=== PATIENT | female | born 1930 | race Caucasian/White ===

== ENCOUNTER 2019-08-15 21:32 | Observation (INO) | payer MEDICARE, MEDICAID ==
[~2019-08-15] VITALS: Ht 172.7 cm; Wt 80.7 kg
[2019-08-15 21:32] VITALS: BP 162/60
--- NOTE | 2019-08-15 21:40 | NUR ---
89 YEAR OLD FEMALE BIBA FROM [facility], PER EMS PATIENT WAS CONFUSED FOR THE PAST 12 HOURS AND STARTED ACTING MORE AGGRESSIVE TO HER NEIGHBOR RESIDENT. PATIENT GCS 14 (E4,V4,M6), AOX1. BREATHING EVEN AND UNLABORED, SKIN WARM AND DRY. BED IN LOWEST POSITION, LOCKED, BED RAIL UPX1. PATIENT PLACED ON MONTIOR, ERMD AWARE OF STATUS PMH - DM2 ALLERGIES - NKA
--- NOTE | 2019-08-15 22:00 | NUR ---
PT BEULAH BLS. TAKEN TO BED 2
--- NOTE | 2019-08-15 22:01 | NUR ---
PT TAKEN TO CT
--- NOTE | 2019-08-15 22:19 | NUR ---
PT RETURN FROM CT
[2019-08-15 23:30] LABS: BASOPHILS % (AUTO) 0.5 % (0.0-2.0); EOSINOPHILS # (AUTO) 0.5 K/uL (0-0.4); EOSINOPHILS % (AUTO) 6.8 % (0.0-4.0); HEMATOCRIT 37.9 % (36-48); HEMOGLOBIN 12.6 g/dL (12.0-16.0); LYMPHOCYTES # (AUTO) 2.2 K/uL (2.5-16.5); LYMPHOCYTES % (AUTO) 30.3 % (20.5-51.1); MEAN CORPUSCULAR HEMOGLOBIN 33 pg (27-31); MEAN CORPUSCULAR HGB CONC 33 g/dL (33-37); MEAN CORPUSCULAR VOLUME 99.3 fL (80-94); MONOCYTES # (AUTO) 0.5 K/uL (0.8-1.0); MONOCYTES % (AUTO) 6.9 % (1.7-9.3); NEUTROPHILS % (AUTO) 55.5 % (42.2-75.2); PLATELET COUNT (AUTO) 241 K/uL (140-450); RED BLOOD CELL COUNT(AUTO) 3.81 MIL/uL (4.20-5.40); WHITE BLOOD COUNT (AUTO) 7.2 K/uL (4.8-10.8)
--- NOTE | 2019-08-15 23:30 | NUR ---
PATIENT ALERT AND AWAKE, BREATHING EVEN AND UNLABORED
[2019-08-15 23:46] LABS: ALBUMIN 4.1 g/dL (3.4-5.0); ANION GAP 13.3 (8-16); ASPARTATE AMINOTRANSFERASE 17 U/L (15-37); CARBON DIOXIDE 28.3 mmol/L (21-32); CHLORIDE 104 mmol/L (98-107); CREATININE 1.7 mg/dL (0.6-1.3); GLUCOSE 108 mg/dL (74-106); POTASSIUM 3.6 mmol/L (3.5-5.1); SODIUM SERUM 142 mmol/L (136-145); TOTAL BILIRUBIN 0.3 mg/dL (0.0-1.0); UREA NITROGEN, BLOOD 21 mg/dL (7-18)
[2019-08-15 23:49] LABS: APPEARANCE,URINE CLEAR (CLEAR); BILIRUBIN,URINE NEGATIVE (NEGATIVE); BLOOD, URINE TRACE-I (NEGATIVE); COLOR,URINE YELLOW (YELLOW); LEUKOCYTE ESTERASE ,URINE TRACE (NEGATIVE); NITRITE, URINE NEGATIVE (NEGATIVE); PH,URINE 6.5 (5.0-9.0); UGLUCOSE TRACE (NEGATIVE)
[2019-08-15 23:51] LABS: ACETAMINOPHEN < 0.5 ug/ml (10-30); SALICYLATE < 2.8 mg/dL (2.8-20.0)
--- NOTE | 2019-08-16 00:20 | NUR ---
PATIENT ALERT AND AWAKE, BREATHING EVEN AND UNLABORED. PATIENT ATTEMPTED TO WALK TO BATHROOM AGAIN ON OWN, PT GIVEN CALL LIGHT AND TOLD TO USE IF NEEDED TO GET UP. STORAGE BATTERY CHARGER ASSISTED TO BATHROOM
[2019-08-16 00:47] LABS: RBC,URINE 0-5 /HPF (0-5); WBC,URINE 0-5 /HPF (0-5)
[2019-08-16] MEDS ORDERED: cefTRIAXone 1,000 MG VIAL ONE (00:59)
--- NOTE | 2019-08-16 01:00 | NUR ---
PATIENT ALERT AND AWAKE, BREATHING EVEN AND UNLABORED. PATIENT ATTEMPTED TO WALK TO BATHROOM AGAIN ON OWN. FRUIT COORDINATOR ASSISTED TO BATHROOM. TOOL CHECKER NOTIFIED TO MOVE CLOSER TO NURSING STATION
--- NOTE | 2019-08-16 01:11 | NUR ---
PT MOVED TO BED 4
--- NOTE | 2019-08-16 01:28 | NUR ---
PATIENT ALERT AND AWAKE, BREATHING EVEN AND UNLABORED.
--- NOTE | 2019-08-16 02:50 | NUR ---
PATIENT RESTING WITH EYES CLOSED, BREATHING EVEN AND UNLABORED.
[2019-08-16] MEDS ORDERED: NACL 0.9% 1,000 ML IV SCH (02:54)
[2019-08-16] MEDS ORDERED: MORPHINE SULFATE 2 MG/ML SYR IVP PRN (02:55)
[2019-08-16] MEDS ORDERED: DOCUSATE SODIUM 100 MG GELCAP PO PRN (02:55)
[2019-08-16] MEDS ORDERED: ONDANSETRON 4 MG/2 ML VIAL IM/IVP PRN (02:55)
[2019-08-16] MEDS ORDERED: HYDROcodone/APAP 5/325 MG 1 TAB TAB PO PRN (02:55)
[2019-08-16] MEDS ORDERED: ACETAMINOPHEN 325 MG TAB PO PRN (02:55)
[2019-08-16] MEDS ORDERED: LORazepam 2 MG/ML VIAL IM/IVP PRN (02:55)
[2019-08-16 03:27] LABS: PROTHROMBIN TIME 10.1 secs (10.8-13.4)
[2019-08-16 03:52] LABS: BARBITURATE, URINE NEG. ng/ml (NEG <=200); BENZODIAZEPINE, URINE NEG. ng/mL (NEG <=200); CANNABINOID, URINE NEG. ng/mL (NEG <=50); COCAINE, URINE NEG. ng/mL (NEG <=300); OPIATE, URINE NEG. ng/mL (NEG <=2000); PHENCYCLIDINE SCREEN,URINE NEG. ng/mL (NEG <=25)
--- NOTE | 2019-08-16 04:00 | NUR ---
Patient will be admitted to care of DR GARZA. Admited to TELE. Will go to room 110A. Belongings list completed. Report to CORTES TYLER.
[2019-08-16 04:05] LABS: CHOL/HDL RATIO 2.3 (1-4.5); FREE T4 (FREE THYROXINE) 1.13 ng/dL (0.76-1.46); MAGNESIUM 2.1 mg/dL (1.8-2.4); THYROID STIMULATING HORMONE 0.16 uIU/mL (0.34-3.74)
[2019-08-16 04:10] VITALS: BP 133/70
--- NOTE | 2019-08-16 04:10 | NUR ---
RECIEVED PT AA0X1 , NID , IV SITE INTACT AND PATENT , FROM ER / [facility]SE[facility] , SKIN INTACT . PT. CONFUSE BUT CAN FOLLOW SIMPLE COMMAND . AMBULATORY W / ASSIST - CONTINENT - SHE USES THE WORD PEE PEE WHEN SHE WANTS TO GO TO BATHROOM . NPO EXCEPT MEDS , SKIN INTACT . ADMISSION ASSESSMENT DONE - MRSA SPECIMEN SENT TO LAB. FALL RISK - PUT ON SAFETY / FALL PRECAUTION PROTOCOL - BED ALARM ON . PLOC DISCUSSES BUT POOR UNDERSTANDING DUE TO MENTAL STATUS . WILL CONT. TO MONITOR.
[2019-08-16] MEDS ORDERED: DEXTROSE 50% 50 ML SYR IVP PRN (04:15)
[2019-08-16] MEDS ORDERED: HYDR100T79 PO (04:25)
[2019-08-16] MEDS ORDERED: ASPI-1822 PO (04:25)
[2019-08-16] MEDS ORDERED: LOSA100T1 PO (04:25)
[2019-08-16] MEDS ORDERED: FERR325E14 PO (04:25)
[2019-08-16] MEDS ORDERED: ROSU5TAB PO (04:25)
[2019-08-16] MEDS ORDERED: DIT5 PO (04:25)
[2019-08-16] MEDS ORDERED: AMLO10TA PO (04:25)
[2019-08-16] MEDS ORDERED: SENN-73 PO (04:25)
--- NOTE | 2019-08-16 06:00 | NUR ---
TRYING TO REMOVE THE EQUIPMENT - REFER TO KATY FOR POSSIBLE RESTRAINT ORDER.
[2019-08-16] MEDS: BLOOD GLUCOSE MONITORING 1 DEV DEV FS SCH ×4 (06:42→21:29)
--- NOTE | 2019-08-16 07:00 | NUR ---
PUR ON RESTRAINT ORDERED - ENDORSE TO AM SHIFT THE RESTRAINST INTERVENTION.
--- NOTE | 2019-08-16 07:15 | NUR ---
RECEIVED BEDSIDE REPORT FROM NIGHTSHIFT NURSE. PT RESTING IN BED UPON ARRIVAL. ABLE TO MAKE NEEDS KNOWN. RESPIRATIONS EVEN AND UNLABORED WITH NO SOB OR RESPIRATORY DISTRESS. SKIN WARM AND DRY TO TOUCH. IV SITE IN LAC 20G IS CLEAN, DRY, AND INTACT. SAFETY MEASURES IN PLACE. WILL CONTINUE TO MONITOR.
[2019-08-16 08:00] VITALS: BP 155/56
--- NOTE | 2019-08-16 08:18 | NUR ---
PATIENT HAS BEEN SCREENED AND CATEGORIZED MODERATE NUTRITION RISK. PATIENT WILL BE SEEN WITHIN 3-5 DAYS OF ADMISSION. 08/18/19 08/20/[address]
[2019-08-16] MEDS: ASPIRIN 81 MG TAB.CHEW PO SCH (08:33)
[2019-08-16] MEDS: ATORVASTATIN 20 MG TAB PO SCH (08:34)
[2019-08-16] MEDS: amLODIPine 5 MG TAB PO SCH (08:35)
[2019-08-16] MEDS: SENNA 8.6 MG TAB PO SCH ×3 (08:35→22:48)
[2019-08-16] MEDS: LOSARTAN 50 MG TAB PO SCH (08:36)
[2019-08-16] MEDS: OXYBUTYNIN 5 MG TAB PO SCH ×3 (08:36→22:47)
[2019-08-16] MEDS: hydrALAZINE 25 MG TAB PO SCH ×3 (08:36→22:51)
--- NOTE | 2019-08-16 08:39 | NUR ---
ADMINISTERED SCHED MED PRESCRIBED PER MD ORDER. PT TOLERATED WELL. MEDICATION EDUCATION PERFORMED. PT SPEAKS WELSH SO PT WAS UNABLE TO VERBALIZE UNDERSTANDING. SAFETY MEASURES IN PLACE. WILL CONTINUE TO MONITOR.
[2019-08-16] MEDS ORDERED: NON-FORMULARY ITEM (Hydralazine HCl (Hydralazine Hydrochloride) 25 MG) PO SCH (09:00)
--- NOTE | 2019-08-16 10:14 | NUR ---
HOURLY ROUNDING. PT RESTING IN BED UPON ARRIVAL. ABLE TO MAKE SOME NEEDS KNOWN. RESPIRATIONS EVEN AND UNLABORED WITH NO SOB OR RESPIRATORY DISTRESS. SKIN WARM AND DRY TO TOUCH. SAFETY MEASURES IN PLACE. SITTER AT DOORWAY. WILL CONTINUE TO MONITOR.
--- NOTE | 2019-08-16 10:25 | NUR ---
ADMINISTERED SCHED IVF PRESCRIBED PER MD ORDER. PT TOLERATED WELL. MEDICATION EDUCATION PERFORMED. PT SPEAKS HUNGARIAN SO PT WAS UNABLE TO VERBALIZE UNDERSTANDING. SAFETY MEASURES IN PLACE. WILL CONTINUE TO MONITOR.
[2019-08-16] MEDS: DEXT 5% / NACL 0.45% 1,000 ML IV SCH ×2 (10:29→20:03)
--- NOTE | 2019-08-16 11:16 | NUR ---
PT NEEDS CONSENT FOR EGD. TRIED CALLING SON TWICE AT [phone] AND LEFT A VOICEMAIL. CALLED NATALIYA JAZMYN AT [phone]. THE NUMBER SAYS THAT IT IS NOT AVAILABLE. CALLED CLARK PATRICK AT [phone] AND HE SAID THAT HIS MALAYSIAN IS NOT GOOD ENOUGH TO TALK TO ME NOR IS THERE ANYONE HOME TO HELP HIM UNDERSTAND. CALLED VINCE AT [phone] FOR ANY OTHER NUMBERS AND THAT WERE ALL THE NUMBERS THEY HAD. SAFETY MEASURES IN PLACE. WILL CONTINUE TO MONITOR.
--- NOTE | 2019-08-16 11:30 | NUR ---
PT BLOOD SUGAR WAS 135. NO INSULIN COVERAGE NEEDED AT THIS TIME. SAFETY MEASURES IN PLACE. WILL CONTINUE TO MONITOR.
[2019-08-16 12:00] VITALS: BP 137/48
--- NOTE | 2019-08-16 12:57 | NUR ---
HOURLY ROUNDING. PT RESTING IN BED UPON ARRIVAL. ABLE TO MAKE SOME NEEDS KNOWN. RESPIRATIONS EVEN AND UNLABORED WITH NO SOB OR RESPIRATORY DISTRESS. SKIN WARM AND DRY TO TOUCH. 1:1 SITTER [address] DOORWAY. SAFETY MEASURES IN PLACE. WILL CONTINUE TO MONITOR.
--- NOTE | 2019-08-16 14:00 | NUR ---
GOT A HOLD OF NATALIYA ELDRIDGE AND OBTAINED CONSENT. VERIFIED WITH TWO WITNESSES. SAFETY MEASURES IN PLACE. WILL CONTINUE TO MONITOR.
--- NOTE | 2019-08-16 15:38 | NUR ---
PT RESTING IN BED WITH FAMILY AT BEDSIDE. ABLE TO MAKE SOME NEEDS KNOWN. RESPIRATIONS EVEN AND UNLABORED WITH NO SOB OR RESPIRATORY DISTRESS. SKIN WARM AND DRY TO TOUCH. 1:1 SITTER AT DOORWAY. SAFETY MEASURES IN PLACE. WILL CONTINUE TO MONITOR.
--- NOTE | 2019-08-16 15:45 | NUR ---
PT LEFT FOR EGD PROCEDURE. SAFETY MEASURES IN PLACE.
--- NOTE | 2019-08-16 15:52 | NUR ---
CALLED [facility] TO SEE IF PT HAD RECEIVED FLU AND OR PNA VACCINE. PER [facility], PT RECEIVED PNA VACCINE IN 2019 AND FLU VACCINE IN 03/18/2019
[2019-08-16 16:00] VITALS: BP 138/52
[2019-08-16] MEDS ORDERED: fentaNYL 0.05 MG/ML VIAL ONE (17:26)
[2019-08-16] MEDS ORDERED: MIDAZOLAM 2 MG/2 ML VIAL ONE ×2 (17:27)
[2019-08-16] MEDS: MIDAZOLAM 2 MG/2 ML VIAL IVP ONE ×2 (17:43→18:49)
[2019-08-16] MEDS: fentaNYL 0.05 MG/ML VIAL IVP ONE ×2 (17:44→18:49)
[2019-08-16] MEDS ORDERED: MAGNESIUM CITRATE 300 ML BTL PO SCH (17:50)
--- NOTE | 2019-08-16 18:30 | NUR ---
PT CAME BACK FROM THE OR. REPORT GIVEN FROM OR NURSE. PT RESTING IN BED UPON ARRIVAL. ABLE TO MAKE SOME NEEDS KNOWN. RESPIRATIONS EVEN AND UNLABORED WITH NO SOB OR RESPIRATORY DISTRESS. SKIN WARM AND DRY TO TOUCH. VITAL SIGNS: 145/56 BP, TEMP 97.7, 18 RR, 97% SPO2 ON RA. 1:1 SITTER AT DOORWAY. SAFETY MEASURES IN PLACE. WILL CONTINUE TO MONITOR.
[2019-08-16] MEDS ORDERED: GLUCAGON 1 MG VIAL IVP SCH (18:35)
--- NOTE | 2019-08-16 19:20 | NUR ---
ENDORSED TO NIGHTSHIFT NURSE. PT RESTING IN BED UPON ARRIVAL. ABLE TO MAKE SOME NEEDS KNOWN. RESPIRATIONS EVEN AND UNLABORED WITH NO SOB OR RESPIRATORY DISTRESS. SKIN WARM AND DRY TO TOUCH. 1:1 SITTER AT DOORWAY. SAFETY MEASURES IN PLACE. PT IS STABLE
--- NOTE | 2019-08-16 19:21 | NUR ---
RECD. RESTING COMFORTABLY SLEEPING IN BED, EASILY AROUSABLE WHEN AWAKEN BUT STILL DROWSY. S/P EGD. RESPIRATION EVEN AND UNLABORED. IV OF D51/2 NS AT 60 ML/HR INFUSING, RIGHT AC G20. SAFETY MEASURES ENFORCED. BED IN THE LOWEST POSITION, BED ALARM ON. NO APPEARANCE OF PAIN NOTED - FLACC -0. VS STABLE.
[2019-08-16 20:00] VITALS: BP 124/47
--- NOTE | 2019-08-16 20:00 | NUR ---
Patient's Plan of Care was discussed and reviewed with OCCUPATIONAL MEDICINE OFFICER: MIRI, WILL CONTINUE WITH CURRENT POC.
--- NOTE | 2019-08-16 20:45 | NUR ---
REPOSITIONED IN BED, MADE COMFORTABLE WITH PILLOWS. HARDLY WAKE UP, STILL DROWSY.
[2019-08-16] MEDS: LACTULOSE 20 GM/30 ML UDC PO SCH ×2 (21:00→22:46)
[2019-08-16] MEDS ORDERED: ROSUVASTATIN CALCIUM 5 MG PO SCH (21:00)
--- NOTE | 2019-08-16 21:29 | NUR ---
PATIENT STILL VERY DROWSY, SNORING. MOVES AND SLIGHTLY OPENS EYES WHEN AWAKEN BUT GOES BACK TO SLEEP AGAIN. DUE PO MEDICATIONS NOT GIVEN. INFORMED DR. CRUZ. WILL GIVE MEDS WHEN PATIENT IS FULLY AWAKE, VS TAKEN - T -98.2, RR -16, BP - 133/66, HR - 56, 02 SAT - 97% ON ROOM AIR.
[2019-08-16] MEDS: INSULIN LISPRO SLIDING SCALE 100 UNITS/ML VIAL SUBQ PRN (21:30)
--- NOTE | 2019-08-16 22:35 | NUR ---
WOKE UP AND REQUESTED TO GO TO THE BR, ASSISTED TO VOID. BACK TO BED AFTER VOIDING. SAFETY MAINTAINED.
--- NOTE | 2019-08-16 22:47 | NUR ---
DUE PO MEDICATIONS FOR THE NIGHT GIVEN WITH APPLE SAUCE. WENT BACK TO SLEEP AFTER TAKING MEDS.
[2019-08-17] VITALS: BP 112/46
--- NOTE | 2019-08-17 00:30 | NUR ---
STILL SLEEPING COMFORTABLY IN BED.
--- NOTE | 2019-08-17 01:50 | NUR ---
TAKEN TO RADIOLOGY VIA W/C FOR CT SCAN OF ABDOMEN/PELVIS. Addendum: 08/17/19 at 0256 by Neida Morgan LVN CORRECTION: THIS CHARTING DOES NOT BELONG TO THIS PATIENT.
--- NOTE | 2019-08-17 02:05 | NUR ---
STILL SLEEPING COMFORTABLY IN BED.
--- NOTE | 2019-08-17 02:05 | NUR ---
BACK FROM RADIOLOGY. GOES BACK TO SLEEP. Addendum: 08/17/19 at 0257 by Neida Morgan LVN CORRECTION: THIS CHARTING DOES NOT BELONG TO THIS PATIENT.
[2019-08-17] MEDS: DEXT 5% / NACL 0.45% 1,000 ML IV SCH (02:55)
[2019-08-17 04:00] VITALS: BP 128/60
--- NOTE | 2019-08-17 05:30 | NUR ---
WOKE UP, ASSISTED TO BR TO VOID. BACK TO BED AFTER VOIDING. GOES BACK TO SLEEP.
--- NOTE | 2019-08-17 06:20 | NUR ---
ASSISTED OUT OF BED TO GO TO BR AND VOID. BACK TO BED AFTER VOIDING. SLEEP AGAIN.
--- NOTE | 2019-08-17 06:52 | NUR ---
STILL SLEEPING COMFORTABLY IN BED. SAFETY MAINTAINED DURING SHIFT. CONDITION REMAIN STABLE.
[2019-08-17 07:13] LABS: BASOPHILS % (AUTO) 0.5 % (0.0-2.0); EOSINOPHILS # (AUTO) 0.2 K/uL (0-0.4); HEMATOCRIT 35.7 % (36-48); LYMPHOCYTES # (AUTO) 1.3 K/uL (2.5-16.5); LYMPHOCYTES % (AUTO) 21.6 % (20.5-51.1); MEAN CORPUSCULAR HEMOGLOBIN 33 pg (27-31); MEAN CORPUSCULAR HGB CONC 34 g/dL (33-37); MEAN CORPUSCULAR VOLUME 99.5 fL (80-94); MONOCYTES # (AUTO) 0.4 K/uL (0.8-1.0); MONOCYTES % (AUTO) 5.7 % (1.7-9.3); NEUTROPHILS # (AUTO) 4.2 K/uL (1.8-7.7); NEUTROPHILS % (AUTO) 68.2 % (42.2-75.2); PLATELET COUNT (AUTO) 224 K/uL (140-450); RED BLOOD CELL COUNT(AUTO) 3.59 MIL/uL (4.20-5.40); RED CELL DISTRIBUTION WIDTH 13.7 % (11.6-13.7); WHITE BLOOD COUNT (AUTO) 6.2 K/uL (4.8-10.8)
--- NOTE | 2019-08-17 07:20 | NUR ---
REPORT RECEIVED FROM NURSE PEREZ, PT AWAKE, A/OX2, ABLE TO COMMUNICATE NEEDS. PT DENIES PAIN OR DISCOMFORT, NO S/S OF ACUTE DISTRESS NOTED AT THIS TIME, ASSISTED OOB TO BATHROOM AND BACK TO BED, CALL LIGHT AND PERSONAL ITEMS PLACED WITHIN EASY REACH, SAFETY PRECAUTIONS IN PLACE, WILL CONTINUE TO MONITOR.
[2019-08-17 07:24] LABS: CARBON DIOXIDE 27.5 mmol/L (21-32); CHLORIDE 106 mmol/L (98-107); GLUCOSE 95 mg/dL (74-106); POTASSIUM 3.5 mmol/L (3.5-5.1); SODIUM SERUM 143 mmol/L (136-145); UREA NITROGEN, BLOOD 18 mg/dL (7-18)
[2019-08-17] MEDS: BLOOD GLUCOSE MONITORING 1 DEV DEV FS SCH ×3 (07:30→16:49)
[2019-08-17 07:58] LABS: CREATININE 1.5 mg/dL (0.6-1.3)
[2019-08-17 08:45] VITALS: BP 137/59
[2019-08-17] MEDS ORDERED: LACT10SO1 PO (08:58)
[2019-08-17] MEDS: ASPIRIN 81 MG TAB.CHEW PO SCH (09:04)
[2019-08-17] MEDS: LOSARTAN 50 MG TAB PO SCH (09:04)
[2019-08-17] MEDS: SENNA 8.6 MG TAB PO SCH ×4 (09:04→16:54)
[2019-08-17] MEDS: hydrALAZINE 25 MG TAB PO SCH (09:04)
[2019-08-17 09:05] LABS: MAGNESIUM 2.5 mg/dL (1.8-2.4); PHOSPHORUS 3.8 mg/dL (2.5-4.9)
[2019-08-17] MEDS: OXYBUTYNIN 5 MG TAB PO SCH (09:05)
[2019-08-17] MEDS: ATORVASTATIN 20 MG TAB PO SCH (09:05)
[2019-08-17] MEDS: amLODIPine 5 MG TAB PO SCH (09:06)
[2019-08-17] MEDS: LACTULOSE 20 GM/30 ML UDC PO SCH ×3 (09:14→16:54)
--- NOTE | 2019-08-17 09:16 | NUR ---
DISCHARGE PLANNING: THIS IS AN 89 Y/O FEMALE PATIENT FROM [facility], WHO CAME IN DUE TO CONFUSION X 1 DAY. PAST MEDICAL HISTORY INCLUDE DM, HTN, OVERACTIVE BLADDER AND CONSTIPATION. INITIAL DIAGNOSIS OF INGESTED FOREIGN BODY. CURRENT LABS INCLUDE WBC 6.2, H/H 12.0/35.7, NA/K 143/3.5, BUN/CREA 18/1.5 AND MAG 2.5. MRSA NARES PENDING. GI CONSULT IN PLACE. DC PLAN BACK TO [facility] ONCE STABLE. Addendum: 08/17/19 at 0950 by Carmela Harrington CM RECEIVED AN ORDER TO DC BACK TO [facility] TODAY. CLINICALS SENT TO [facility]. CONTACTED RICARDO BRIZUELA AT [phone] REGARDING DC PLAN. SHE STATED SHE WILL CALL ME BACK FOR THE AUTH. RICARDO WILL FOLLOW UP. Addendum: 08/17/19 at 1140 by Carmela Harrington CM PER ELBERT, PATIENT WILL GO TO ROOM 35A UNDER DR. CAREY. CONTACTED RICARDO BRIZUELA REGARDING TRANSPORTATION, SHE STATED SHE WILL CALL ME BACK FOR THE AUTH. Addendum: 08/17/19 at 1200 by Carmela Harrington CM CONTACTED PATIENT'S SON NATALIYA ELDRIDGE AT [phone] REGARDING DC PLAN AND IS IN AGREEMENT. I ALSO INFORMED HIM OF THE IM AND CHOICE OF VENDOR LETTER. HE STATED HE WILL BE IN THE HOSPITAL IN 30 MINS AND WILL HAVE THE NURSE CALL ME ONCE HE IS HERE. Addendum: 08/17/19 at 1504 by Carmela Harrington CM RECEIVED A CALL FROM RICARDO BRIZUELA REGARDING TRANSPORTATION. SHE STATED TO CONTACT [facility] AT [phone] OPT 4 AND AUTH IS [id number]. CONTACTED [facility], ABLE TO SPEAK TO ZAC HE STATED HE WILL CALL ME BACK FOR ETA. Addendum: 08/17/19 at 1506 by Carmela Harrington LATE ENTRY FOR 1310: RECEIVED A CALL FROM PRIMARY RN THAT PATIENT'S SON IS HER TO SIGN IM AND CHOICE OF VENDOR LETTER. SIGNED FORMS PLACED IN THE CHART.
--- NOTE | 2019-08-17 10:15 | NUR ---
PT ASLEEP APPEARS COMFORTABLE, NO S/S OF ACUTE DISTRESS NOTED AT THIS TIME, CALL LIGHT AND PERSONAL ITEMS REMAIN WITHIN EASY REACH, SAFETY PRECAUTIONS IN PLACE, WILL CONTINUE TO MONITOR.
[2019-08-17 12:00] VITALS: BP 119/48
[2019-08-17] MEDS: INSULIN LISPRO SLIDING SCALE 100 UNITS/ML VIAL SUBQ PRN (12:43)
[2019-08-17 13:02] VITALS: BP 119/48
--- NOTE | 2019-08-17 13:15 | NUR ---
PT REMAINS AWAKE, A/OX2, ABLE TO COMMUNICATE NEEDS. NO S/S OF ACUTE DISTRESS NOTED AT THIS TIME, CALL LIGHT AND PERSONAL ITEMS REMAIN WITHIN EASY REACH, SAFETY PRECAUTIONS IN PLACE, CON AT BEDSIDE, WILL CONTINUE TO MONITOR. PT SON NATALIYA AT BEDSIDE, NOTIFIED ADMITTING AND CASE MANAGEMENT FOR NECESSARY SIGNATURES. PT SON RECEIVED VERBAL DISCHARGE INSTRUCTIONS, VERBALIZED UNDERSTANDING, PT SON NATALIYA UNABLE TO REMAIN IN HOUSE FOR COMPLETION OF PAPER DOCUMENTS PENDING TRANSPORTATION VERIFICATION.
--- NOTE | 2019-08-17 13:30 | NUR ---
REPORT CALLED TO YOSSI AT [facility]
--- NOTE | 2019-08-17 15:30 | NUR ---
PT ASLEEP, APPEARS COMFORTABLE, CALL LIGHT AND PERSONAL ITEMS REMAIN WITHIN EASY REACH, SAFETY AND FALL PRECAUTIONS IN PLACE, WILL CONTINUE TO MONITOR.
[2019-08-17 16:00] VITALS: BP 136/55
--- NOTE | 2019-08-17 17:06 | NUR ---
PT REMAINS A/OX2 ABLE TO COMMUNICATE. NEEDS, SKIN INTACT. PT AWARE AND AGREEABLE TO TRANSFER TO [facility], UNABLE TO DEMONSTRATE UNDERSTADNIG OF DC INSTRUCTION. PERIPHERAL IV TO RUE REMOVED, CATH INTACT, TOLERATED REMOVAL WELL. PT DISCHARGED TO [facility] TRANSPORT WITH ALL PERSONAL BELONGINGS. NO S/SOF ACUTE DISTRESS NOTED.
== END 2019-08-17 17:02 ==
LOC: MED 21:32 → MTU 08-16 03:15 → INTOOBSV 08-17 06:36 → OBSVTOIN 08-17 06:36
PROVIDERS: ADMIT General Practice; ATTEND General Practice
DX: T18.9XXA Foreign body of alimentary tract, part unspecified, initial encounter (principal); G93.40 Encephalopathy, unspecified; E11.22 Type 2 diabetes mellitus with diabetic chronic kidney disease; I12.9 Hypertensive chronic kidney disease with stage 1 through stage 4 chronic kidney disease, or unspecified chronic kidney disease; N18.9 Chronic kidney disease, unspecified; N17.0 Acute kidney failure with tubular necrosis; R80.9 Proteinuria, unspecified; N32.81 Overactive bladder; E78.5 Hyperlipidemia, unspecified; K59.00 Constipation, unspecified; R41.82 Altered mental status, unspecified; K29.70 Gastritis, unspecified, without bleeding; X58.XXXA Exposure to other specified factors, initial encounter; Y92.89 Other specified places as the place of occurrence of the external cause
CPT/HCPCS: 36415; 43239; 70450; 71045; 74018; 74176; 80048; 80053; 80061; 80305; 81001; 81025; 82150; 82550; 82948; 83036; 83690; 83735; 83880; 84100; 84439; 84443; 84484; 85025; 85610; 85730; 86677; 87081; 93005; 93307; 93880; 96361; 96365; 96372; 97110; 97116; 97161; 97530; 99285; G0378; G0480; G0482; J0696; J1610; J1815; J2250; J3010; J7030; Q0092

== ENCOUNTER 2019-12-03 08:09 | Inpatient (IN) | payer OTHER, MEDICAID, SELFPAY ==
[~2019-12-03] VITALS: Ht 154.9 cm; Wt 61.7 kg
[~2019-12-03 08:09] MED LIST: AMLO10TA PO; ASPI-1822 PO; DIT5 PO; FERR325E14 PO; HYDR100T79 PO; LACT10SO1 PO; LOSA100T1 PO; ROSU5TAB PO; SENN-73 PO
--- NOTE | 2019-12-03 08:12 | NUR ---
biba bls coming from [facility] noted to have altered consciouness at 7am .aox2,GCS 14 , sce , cbs blf . pmhx dm , htn , ckd.
--- NOTE | 2019-12-03 08:14 | NUR ---
BIBA TAKEN TO BED 7
--- NOTE | 2019-12-03 08:15 | NUR ---
dr prescott at bedside evaluating pt.
[2019-12-03] MEDS ORDERED: NACL 0.9% 1,000 ML IV ONE (08:20)
[2019-12-03 08:41] VITALS: BP 166/66
[2019-12-03 08:50] LABS: BASOPHILS % (AUTO) 0.7 % (0.0-2.0); EOSINOPHILS # (AUTO) 0.5 K/uL (0-0.4); EOSINOPHILS % (AUTO) 9.4 % (0.0-4.0); HEMATOCRIT 37.1 % (36-48); HEMOGLOBIN 12.3 g/dL (12.0-16.0); LYMPHOCYTES # (AUTO) 1.7 K/uL (2.5-16.5); LYMPHOCYTES % (AUTO) 33.4 % (20.5-51.1); MEAN CORPUSCULAR HEMOGLOBIN 34 pg (27-31); MEAN CORPUSCULAR HGB CONC 33 g/dL (33-37); MEAN CORPUSCULAR VOLUME 101.9 fL (80-94); MONOCYTES # (AUTO) 0.4 K/uL (0.8-1.0); MONOCYTES % (AUTO) 7.1 % (1.7-9.3); NEUTROPHILS # (AUTO) 2.5 K/uL (1.8-7.7); NEUTROPHILS % (AUTO) 49.4 % (42.2-75.2); PLATELET COUNT (AUTO) 237 K/uL (140-450); RED BLOOD CELL COUNT(AUTO) 3.64 MIL/uL (4.20-5.40); RED CELL DISTRIBUTION WIDTH 13.8 % (11.6-13.7); WHITE BLOOD COUNT (AUTO) 5.2 K/uL (4.8-10.8)
[2019-12-03 09:00] LABS: ANION GAP 14.3 (8-16); CHLORIDE 108 mmol/L (98-107); CREATININE 1.8 mg/dL (0.6-1.3); GLUCOSE 109 mg/dL (74-106); POTASSIUM 4.3 mmol/L (3.5-5.1); SODIUM SERUM 146 mmol/L (136-145); UREA NITROGEN, BLOOD 30 mg/dL (7-18)
[2019-12-03 09:05] LABS: PROTHROMBIN TIME 9.7 secs (10.8-13.4)
[2019-12-03 09:06] LABS: ALBUMIN 3.7 g/dL (3.4-5.0); ASPARTATE AMINOTRANSFERASE 16 U/L (15-37); TOTAL BILIRUBIN 0.2 mg/dL (0.0-1.0)
[2019-12-03 09:57] LABS: APPEARANCE,URINE CLEAR (CLEAR); BILIRUBIN,URINE NEGATIVE (NEGATIVE); BLOOD, URINE NEGATIVE (NEGATIVE); COLOR,URINE YELLOW (YELLOW); LEUKOCYTE ESTERASE ,URINE NEGATIVE (NEGATIVE); NITRITE, URINE NEGATIVE (NEGATIVE); PH,URINE 6.5 (5.0-9.0); UGLUCOSE NEGATIVE (NEGATIVE)
[2019-12-03] MEDS ORDERED: cefTRIAXone 1,000 MG VIAL ONE (10:00)
[2019-12-03] MEDS ORDERED: AZITHROMYCIN 1,000 MG in DEXTROSE 5% 500 ML IV ONE (10:05)
[2019-12-03] MEDS ORDERED: DOCUSATE SODIUM 100 MG GELCAP PO PRN (10:05)
[2019-12-03] MEDS ORDERED: ACETAMINOPHEN 325 MG TAB PO PRN (10:05)
[2019-12-03] MEDS ORDERED: DEXTROSE 50% 50 ML SYR IVP PRN (10:05)
[2019-12-03] MEDS ORDERED: ONDANSETRON 4 MG/2 ML VIAL IM/IVP PRN (10:05)
--- NOTE | 2019-12-03 10:30 | NUR ---
AT BEDSIDE EVALUATING PT.
--- NOTE | 2019-12-03 10:50 | NUR ---
Patient will be admitted to care of DR HERNANDEZ. Admited to [facility]. Will go to room 117. Belongings list completed. Report to kolby pop.
--- NOTE | 2019-12-03 10:50 | NUR ---
RECEIVED REPORT FROM ER NURSE FIORELLA. PATIENT IN STABLE CONDITION, RESPIRATIONS EVEN AND UNLABORED. VITAL SIGNS WNL. NO SIGNS OF DISTRESS NOTED. PATIENT BELONGINGS ARE BEDSIDE. SAFETY MEASURES IN PLACE, BED IN LOWEST POSITION, CALL LIGHT WITHIN REACH. WILL CONTINUE TO MONITOR.
[2019-12-03 10:53] LABS: FREE T4 (FREE THYROXINE) 1.11 ng/dL (0.76-1.46); MAGNESIUM 2.2 mg/dL (1.8-2.4); PHOSPHORUS 4.4 mg/dL (2.5-4.9); THYROID STIMULATING HORMONE 0.68 uIU/mL (0.34-3.74)
[2019-12-03] MEDS ORDERED: RISP0.5T19 PO (10:54)
[2019-12-03 11:22] VITALS: BP 158/60
[2019-12-03] MEDS ORDERED: AZITHROMYCIN 500 MG in DEXTROSE 5% 250 ML IV SCH (11:30)
--- NOTE | 2019-12-03 12:00 | NUR ---
SCHEDULED MEDICATIONS ADMINISTERED. PT TOLERATED WELL. NO DISTRESS NOTED. WILL CONTINUE TO MONITOR.
[2019-12-03] MEDS: DEXT 5% / NACL 0.45% 1,000 ML IV SCH ×2 (12:22→23:02)
[2019-12-03] MEDS: BLOOD GLUCOSE MONITORING 1 DEV DEV FS SCH ×3 (12:24→20:52)
--- NOTE | 2019-12-03 14:10 | NUR ---
PATIENT HAD SWALLOW EVAL, THIN LIQUIDS AND PUREE DIET ONCE SHE IS NO LONGER NPO. SIGN POSTED. PT IS WAITING BEDSIDE TO DO PHYSICAL THERAPY EVAL AND GET PATIENT UP. WILL FOLLOW UP AND CONTINUE TO MONITOR.
[2019-12-03 16:00] VITALS: BP 167/77
--- NOTE | 2019-12-03 16:40 | NUR ---
PT IS RESTING IN BED QUIETLY WITH EYES CLOSED. EASILY AROUSED TO SOUND OF HER NAME. NOL SIGNS OF DISTRESS NOTED. SAFETY MEASURES IN PLACE, WILL CONTINUE TO MONITOR.
--- NOTE | 2019-12-03 17:11 | NUR ---
RECEIVED CALL FROM LAB, COVID TEST IS NEGATIVE. REPORTED. WILL CONTINUE TO MONITOR.
--- NOTE | 2019-12-03 17:16 | NUR ---
ST CLARIFICATION NOTE Pt WAS OVERALL COOPERATIVE, BUT AT TIMES WAS LABILE AND ANXIOUS. Pt HAS MINIMAL DENTITION PRESENT; POOR FOR MASTICATION. Pt WAS ABLE TO TOLERATE PUREE FOOD AND THIN LIQUIDS VIA STRAW W/O DIFFICULTY OR OVERT S/S OF ASPIRATION OR PENETRATION NOTED. AP TRANSFER AND SWALLOW RESPONSE WERE TIMELY WITH FULL LARYNGEAL ELEVATION AND EXCURSION. REC PUREE FOOD AND THIN LIQUIDS AT THIS TIME. COUNTER SALES REPRESENTATIVE AT SNF CAN REASSESS Pt'S ABILITY TO MASTICATE MS WHEN BACK AT SNF WITH DENTURES. ASPIRATION PRECAUTIONS, ORAL CARE, TRAY SET UP, AND INTERMITTENT SUPERVISION NEEDED. D/C SKILLED ST FOR SWALLOW. Pt HAS FUNCTIONAL SWALLOW FOR Pt AT THIS TIME.
--- NOTE | 2019-12-03 19:10 | NUR ---
REPORT GIVEN TO PRODUCE DEPARTMENT SUPERVISOR NURSE FOR CONTINUITY OF CARE. PT IN STABLE CONDITION.
[2019-12-03 20:00] VITALS: BP 150/58
--- NOTE | 2019-12-03 20:00 | NUR ---
RECEIVED PATIENT REPORT AT BEDSIDE. PT AWAKE AND ALERT BUT CONFUSED. PT ON ROOM AIR. NO SOB OR S/S OF DISTRESS NOTED. BED LOWERED WITH CALL LIGHT WITHIN REACH. WILL CONTINUE TO MONITOR
[2019-12-03] MEDS ORDERED: CRUSHER, PILL MC ONE (20:20)
[2019-12-03] MEDS: SIMVASTATIN 20 MG TAB PO SCH (20:26)
[2019-12-03] MEDS: risperiDONE 1 MG TAB PO SCH (20:27)
[2019-12-03] MEDS: hydrALAZINE 25 MG TAB PO SCH (20:27)
[2019-12-03] MEDS: SENNA 8.6 MG TAB PO SCH (20:27)
--- NOTE | 2019-12-03 20:27 | NUR ---
DUE MEDS CRUSHED AND ADMINISTERED WITH PUDDING. PT TOLERATED WELL
[2019-12-03] MEDS ORDERED: RISPERIDONE 0.5 MG PO SCH (21:00)
[2019-12-03] MEDS ORDERED: NON-FORMULARY ITEM (Hydralazine HCl (Hydralazine Hydrochloride) 25 MG) PO SCH (21:00)
[2019-12-03] MEDS ORDERED: ROSUVASTATIN CALCIUM 5 MG PO SCH (21:00)
[2019-12-04] VITALS: BP 127/46
--- NOTE | 2019-12-04 02:34 | NUR ---
PT ASLEEP IN BED. NO S/S OF DISTRESS NOTED
[2019-12-04 05:31] VITALS: BP 146/52
[2019-12-04] MEDS: BLOOD GLUCOSE MONITORING 1 DEV DEV FS SCH ×4 (06:25→20:53)
[2019-12-04 06:58] LABS: BASOPHILS % (AUTO) 0.3 % (0.0-2.0); EOSINOPHILS # (AUTO) 0.3 K/uL (0-0.4); EOSINOPHILS % (AUTO) 7.4 % (0.0-4.0); HEMATOCRIT 33.7 % (36-48); HEMOGLOBIN 11.4 g/dL (12.0-16.0); LYMPHOCYTES # (AUTO) 1.2 K/uL (2.5-16.5); LYMPHOCYTES % (AUTO) 26.6 % (20.5-51.1); MEAN CORPUSCULAR HEMOGLOBIN 34 pg (27-31); MEAN CORPUSCULAR HGB CONC 34 g/dL (33-37); MEAN CORPUSCULAR VOLUME 101.4 fL (80-94); MONOCYTES # (AUTO) 0.3 K/uL (0.8-1.0); MONOCYTES % (AUTO) 7.2 % (1.7-9.3); NEUTROPHILS # (AUTO) 2.7 K/uL (1.8-7.7); NEUTROPHILS % (AUTO) 58.5 % (42.2-75.2); PLATELET COUNT (AUTO) 207 K/uL (140-450); RED BLOOD CELL COUNT(AUTO) 3.33 MIL/uL (4.20-5.40); RED CELL DISTRIBUTION WIDTH 13.5 % (11.6-13.7); WHITE BLOOD COUNT (AUTO) 4.6 K/uL (4.8-10.8)
[2019-12-04 07:14] LABS: ANION GAP 10.2 (8-16); CARBON DIOXIDE 27.6 mmol/L (21-32); CHLORIDE 109 mmol/L (98-107); CREATININE 1.5 mg/dL (0.6-1.3); GLUCOSE 146 mg/dL (74-106); POTASSIUM 3.8 mmol/L (3.5-5.1); SODIUM SERUM 143 mmol/L (136-145); UREA NITROGEN, BLOOD 24 mg/dL (7-18)
[2019-12-04 07:19] LABS: PHOSPHORUS 3.4 mg/dL (2.5-4.9)
--- NOTE | 2019-12-04 07:28 | NUR ---
PT REPORT GIVEN AT BEDSIDE. PT ENDORSED IN STABLE CONDITION
--- NOTE | 2019-12-04 07:29 | NUR ---
RECEIVED REPORT FROM MANAGER ANALYSIS NURSE, FOR CONTINUITY OF CARE. PT IS AA&OX2. RESPIRATIONS ARE EVEN AND UNLABORED, BREATHING TO ROOM AIR. RFA 22G IV IS INTACT AND RUNNING PER ORDERS. REVIEWED POC WITH PT. TELE MONITOR ATTACHED. SAFETY PRECAUTIONS IN PLACE; BED ALARM ACTIVATED, BED IN LOW POSITION, CALL LIGHT WITHIN REACH. FELLER HAND IS AT BEDSIDE TAKING PT'S VITAL SIGNS. NO DISTRESS NOTED. WILL CONTINUE TO MONITOR.
[2019-12-04 08:00] VITALS: BP 160/74
[2019-12-04 08:07] LABS: FOLIC ACID 6.5 ng/mL (>3.0)
[2019-12-04 08:18] LABS: CHOL/HDL RATIO 3.6 (1-4.5)
[2019-12-04] MEDS ORDERED: AZITHROMYCIN 250 MG in DEXTROSE 5% 250 ML IV SCH (09:00)
--- NOTE | 2019-12-04 09:31 | NUR ---
PATIENT HAS BEEN SCREENED AND CATEGORIZED HIGH NUTRITION RISK. PATIENT WILL BE SEEN WITHIN 1-2 DAYS OF ADMISSION. 12/04/[address]
[2019-12-04] MEDS: amLODIPine 5 MG TAB PO SCH (09:42)
[2019-12-04] MEDS: SENNA 8.6 MG TAB PO SCH ×2 (09:43→20:51)
[2019-12-04] MEDS: hydrALAZINE 25 MG TAB PO SCH ×2 (09:43→20:50)
[2019-12-04] MEDS: risperiDONE 1 MG TAB PO SCH ×2 (09:43→20:50)
--- NOTE | 2019-12-04 09:43 | NUR ---
PT'S SCHEDULED MEDICATIONS GIVEN. PT TOLERATED PO MEDS WELL. PT REPEATEDLY TRYING TO GET OUT OF BED. BED ALARM ACTIVATED. SAFETY MEASURES IN PLACE; CALL LIGHT WITHIN REACH, BED IN LOW POSITION. TELE MONITOR ATTACHED. WILL CONTINUE TO MONITOR.
[2019-12-04] MEDS: LOSARTAN 50 MG TAB PO SCH (09:45)
[2019-12-04] MEDS: ASPIRIN 81 MG TAB.CHEW PO SCH (09:52)
--- NOTE | 2019-12-04 11:08 | NUR ---
FLORAL ARTIST NOTE: Basic Screen: Yes High Risk DC Screen Almedia: NATALIYA ELDRIDGE Home Relationship: SON Pre-Admission Living Arrangements: SNF Other: [facility] Prior ADL Total/Dependent Current Home Health Name/Tel: N/A Current DME/02 Name/Tel: WHEELCHAIR Current Hospice Name/Tel: N/A Current Dialysis Name/Tel: N/A Healthcare Decision Maker: Patient Advance Directive No Physician Orders for Life Sustaining Treatment Form No Patient/Family Have Educational Needs No Discipline: Case Mgt/Social Svcs Tentative Discharge Plan/Destination: SNF/ECF Other: [facility] Will require assistance post discharge: No Referred to Lower In Supervisor: No Tentative Discharge Plan Summary: PATIENT IS AN 89-YEAR-OLD FEMALE ADMITTED FOR ALOC AND PNA. PATIENT HAS TYPE II DIABETES, ESSENTIAL HYPERTENSION, AND DYSLIPEDEMIA. PATIENT WAS ADMITTED FROM [facility]. SW CONTACTED GÉNESIS FROM [facility] [phone]. PER GÉNESIS, PATIENT IS WHEELCHAIR BOUND AND REQUIRES TOTAL ASSISTANCE WITH ADLS. GÉNESIS STATED THAT PATIENT IS GROUP HOME AND IS CURRENTLY ON A BED HOLD. GÉNESIS REPORTED THAT PATIENT IS ALERT/ORIENTED AT BASELINE AND THAT PATIENT'S HEALTHCARE DECISION MAKER IS SON: NATALIYA ELDRIDGE [phone]. TENTATIVE DISCHARGE PLAN IS FOR PATIENT TO RETURN HOME. NO FURTHER NEEDS IDENTIFIED. Signature: TOY ORELLANA Date: Dec 04, 2019 Time: 11:06
[2019-12-04] MEDS: DEXT 5% / NACL 0.45% 1,000 ML IV SCH (11:32)
[2019-12-04 12:00] VITALS: BP 142/72
--- NOTE | 2019-12-04 12:30 | NUR ---
PT SWABBED FOR COVID; SPECIMEN SENT TO LAB.
--- NOTE | 2019-12-04 12:35 | NUR ---
PT'S BLOOD SUGAR CHECKED; BGL: 246. WILL PROVIDE COVERAGE.
--- NOTE | 2019-12-04 13:30 | NUR ---
PT CONTINUES TO ATTEMPT TO GET OUT OF BED. PT ACCIDENTALLY REMOVED IV CATHETER. PT TO BE MOVED TO A ROOM CLOSER TO THE NURSING STATION.
[2019-12-04] MEDS: INSULIN LISPRO SLIDING SCALE 100 UNITS/ML VIAL SUBQ PRN ×2 (13:33→21:05)
--- NOTE | 2019-12-04 14:10 | NUR ---
DC PLANN[age] YRS OLD FEMALE PATIENT WAS ADMITTED FROM [facility] WITH THE DX OF ALOC AND PNEUMONIA. PATIENT HAS A HX OF DEMENTIA WITH BEHAVIORAL ISSUES, DM, HTN AND OVERACTIVE BLADDER . CXR SHOWED MILD RIGHT MIDLUNG INFILTRATE. CT HEAD DEMONSTRATES NO BLEEDING URINE, BLOOD CULTURES AND COVID TEST PENDING. ADMINISTERED IVF, IV ABX WITH ROCEPHIN AND AZITHROMYCIN. CONSULTED WITH PULMONOLOGY. DC PLAN TO GO BACK TO [facility] WHEN STABLE CM TO FOLLOW. Addendum: 12/06/19 at 1038 by Heather Singh CM PATIENT WILL BE DISCHARGED TODAY BACK TO [facility], FAXED CLINICALS AND SPOKE WITH DEVENDRA. SHE PROVIDED ROOM NUMBER [id number] KAMINI CAREY. CALLED FAMILY MEMBER AND SPOKE WITH SON NATALIYA ELDRIDGE [phone] TO DISCUSS RIGHTS OF MEDICARE AND TO LET KNOW PATIENT WILL BE RETURNING TO [facility] TODAY. Addendum: 12/06/19 at 1041 by Heather Singh CM NOTIFIED NURSE MONTANO OF ROOM NUMBER FOR PATIENT AND ACCEPTING DOCTOR. WILL WORK ON TRANSPORTATION Addendum: 12/06/19 at 1135 by Heather Singh SPOKE TO PATIENTS SON TO ASK IF HE IS WILLING TO ACCEPT THE COST OF TRANSPORTATION, BUT HE DECLINED. [facility] TRANSPORTATION WILL BE HERE AT 2:00 PM TO QUALITY REVIEWER PATIENT. NOTIFIED NURSE MONTANO AND DEVENDRA AT [facility].
--- NOTE | 2019-12-04 15:42 | NUR ---
12/04/19 RD INITIAL ASSESSMENT COMPLETED PLEASE REFER TO NUTRITION ASSESSMENT UNDER CARE ACTIVITY FOR ESTIMATED NUTRITIONAL NEEDS. 1. RECOMMENDED CCHO 60GM AND NA2GM PUREE DIET TOLERATED 2. IF PO INTAKE <75% RECOMMEND GLUCERNA BID 3. RD TO FOLLOW-UP 2-3 DAYS, HIGH RISK OSBALDO JOHNSON RD
[2019-12-04 16:00] VITALS: BP 134/74
[2019-12-04] MEDS ORDERED: NACL 0.9% 1,000 ML IV SCH (16:45)
--- NOTE | 2019-12-04 17:59 | NUR ---
RISPERDAL ONCE, GIVEN. BLOOD SUGAR CHECKED, WILL PROVIDE COVERAGE. PT CONTINUES TO ATTEMPT TO GET OUT OF BED. BED ALARM ACTIVATED, SAFETY MEASURES IN PLACE.
[2019-12-04] MEDS ORDERED: risperiDONE 1 MG TAB PO SCH (18:39)
--- NOTE | 2019-12-04 19:25 | NUR ---
IV INSERTED ON LEFT WRIST, 22G. IV FLUIDS, NS, RUNNING PER ORDERS. AZITHROMYCIN PO CRUSHED AND ADMINISTERED IN APPLESAUCE. NO ACUTE DISTRESS NOTED. WILL CONTINUE TO MONITOR. Addendum: 12/04/19 at 2224 by Carla Lewis RN TIME CORRECTION *[id number]
--- NOTE | 2019-12-04 19:29 | NUR ---
ENDORSED TO EXPANSION ENVELOPE MAKER HAND NURSE FOR CONTINUITY OF CARE. PT IS INSTABLE CONDITION.
--- NOTE | 2019-12-04 19:30 | NUR ---
RECEIVED BEDSIDE REPORT FROM DAY RN. PT IS AAOX1 TURKISH SPEAKING ONLY. RESPIRATIONS ARE EQUAL AND UNLABORED ON ROOM AIR. LUNG SOUNDS CLEAR AND DIMINISHED AT BASE. SKIN IS INTACT. SKIN WARM AND DRY TO TOUCH. PT IS CONFUSED AND TRYING TO GET OUT OF BED. NO IV AT THIS TIME D/T PT PULLED IV OUT. PT ON PUREE DIET. FROM [facility] COVID NEG X1 SECOND PENDING. PT ON DROPLET PRECAUTIONS. POC DISCUSSED. SAFETY MEASURES ARE IN PLACE. WILL ATTEMPT START NEW IV. CALL LIGHT IS WITHIN REACH.
[2019-12-04 20:00] VITALS: BP 155/66
[2019-12-04] MEDS: AZITHROMYCIN 250 MG TAB PO SCH (20:09)
--- NOTE | 2019-12-04 20:15 | NUR ---
ENDORSED PT TO MITCHELL RN. PT IS IN STABLE CONDITION.
--- NOTE | 2019-12-04 20:16 | NUR ---
RECEIVED ENDORSEMENT FROM NAYELI TOBIN. PATIENT IS AWAKE. CZECH SPEAKING. NO SOB. NO PAIN NOTED. IV LINE AT LEFT WRIST 22G. INTACT AND PATENT. WITH IVF INFUSING. FALL RISK PROTOCOL IN PLACE. DROPLET ISOLATION PRECAUTION OBSERVED AT ALL TIMES. PLAN OF CARE WAS DISCUSSED. CALL LIGHT WITHIN REACH. WILL CONTINUE TO MONITOR.
[2019-12-04] MEDS: SIMVASTATIN 20 MG TAB PO SCH (20:50)
--- NOTE | 2019-12-04 20:51 | NUR ---
DUE MEDS GIVEN ORDERED. TOLERATED WELL. WILL CONTINUE TO MONITOR.
--- NOTE | 2019-12-04 23:00 | NUR ---
PATIENT IS ASLEEP. NO SOB. CALL LIGHT WITHIN REACH. WILL CONTINUE TO MONITOR.
[2019-12-05] VITALS: BP 95/47
--- NOTE | 2019-12-05 01:15 | NUR ---
REPOSITIONED PATIENT. KEPT COMFORTABLE. WILL CONTINUE TO MONITOR.
[2019-12-05 04:00] VITALS: BP 146/65
--- NOTE | 2019-12-05 04:00 | NUR ---
KEPT CLEAN AND DRY. NO SOB. CALL LIGHT WITHIN REACH. WILL CONTINUE TO MONITOR.
[2019-12-05] MEDS: BLOOD GLUCOSE MONITORING 1 DEV DEV FS SCH ×4 (06:09→21:04)
--- NOTE | 2019-12-05 06:11 | NUR ---
BLOOD SUGAR CHECKED 103. PATIENT IS ASLEEP. AROUSABLE TO VERBAL. NO SOB. NO PAIN NOTED. WILL CONTINUE TO MONITOR.
[2019-12-05 06:12] LABS: BASOPHILS % (AUTO) 0.5 % (0.0-2.0); EOSINOPHILS # (AUTO) 0.1 K/uL (0-0.4); EOSINOPHILS % (AUTO) 1.3 % (0.0-4.0); HEMATOCRIT 32.1 % (36-48); HEMOGLOBIN 10.8 g/dL (12.0-16.0); LYMPHOCYTES # (AUTO) 1.4 K/uL (2.5-16.5); LYMPHOCYTES % (AUTO) 22.7 % (20.5-51.1); MEAN CORPUSCULAR HEMOGLOBIN 34 pg (27-31); MEAN CORPUSCULAR HGB CONC 34 g/dL (33-37); MONOCYTES # (AUTO) 0.4 K/uL (0.8-1.0); NEUTROPHILS # (AUTO) 4.4 K/uL (1.8-7.7); NEUTROPHILS % (AUTO) 69.5 % (42.2-75.2); PLATELET COUNT (AUTO) 206 K/uL (140-450); RED BLOOD CELL COUNT(AUTO) 3.18 MIL/uL (4.20-5.40); RED CELL DISTRIBUTION WIDTH 13.5 % (11.6-13.7); WHITE BLOOD COUNT (AUTO) 6.3 K/uL (4.8-10.8)
[2019-12-05 06:41] LABS: ANION GAP 13.5 (8-16); CARBON DIOXIDE 27.5 mmol/L (21-32); CHLORIDE 108 mmol/L (98-107); CREATININE 1.5 mg/dL (0.6-1.3); GLUCOSE 105 mg/dL (74-106); SODIUM SERUM 145 mmol/L (136-145); UREA NITROGEN, BLOOD 26 mg/dL (7-18)
[2019-12-05 06:44] LABS: MAGNESIUM 2.2 mg/dL (1.8-2.4); PHOSPHORUS 4.4 mg/dL (2.5-4.9)
--- NOTE | 2019-12-05 07:29 | NUR ---
ENDORSED PATIENT TO AM SHIFT RN FOR CONTINUITY OF CARE.
--- NOTE | 2019-12-05 07:30 | NUR ---
RECEIVED BEDSIDE REPORT FROM NIGHTSHIFT NURSE. PT RESTING IN BED. FLACC 0. RESPONSIVE TO VERBAL AND TACTILE STIMULI. RESPIRATIONS EVEN AND UNLABORED WITH NO SOB OR RESPIRATORY DISTRESS. SKIN WARM AND DRY TO TOUCH. IV SITE IN L ARM 22G IS CLEAN, DRY, AND INTACT. SAFETY MEASURES IN PLACE. WILL CONTINUE TO MONITOR
[2019-12-05 08:00] VITALS: BP 140/72
--- NOTE | 2019-12-05 08:15 | NUR ---
PT TRIED TO GET OUT OF BED WITHOUT ASSISTANCE. BED ALARM WAS RINGING. ASSISTED PATIENT. EDUCATED PT ON USING CALL LIGHT. PT UNABLE TO VERBALIZE UNDERSTANDING. SAFETY MEASURES IN PLACE. WILL CONTINUE TO MONITOR
[2019-12-05] MEDS ORDERED: cefTRIAXone 1,000 MG in LIDOCAINE MPF 1% 2.1 ML IM SCH (09:00)
[2019-12-05] MEDS ORDERED: LIDOCAINE MPF 1% 0 ML ONE (09:33)
[2019-12-05] MEDS ORDERED: cefTRIAXone 1,000 MG VIAL ONE (09:33)
[2019-12-05] MEDS: SENNA 8.6 MG TAB PO SCH ×2 (10:36→20:34)
[2019-12-05] MEDS: AZITHROMYCIN 250 MG TAB PO SCH (10:36)
[2019-12-05] MEDS: LOSARTAN 50 MG TAB PO SCH (10:36)
[2019-12-05] MEDS: risperiDONE 1 MG TAB PO SCH ×2 (10:36→20:35)
[2019-12-05] MEDS: hydrALAZINE 25 MG TAB PO SCH ×2 (10:36→20:35)
--- NOTE | 2019-12-05 10:36 | NUR ---
ADMINISTERED SCHED MED PRESCRIBED PER MD ORDER. PT TOLERATED WELL. MEDICATION EDUCATION PERFORMED. PT VERBALIZED UNDERSTANDING. SAFETY MEASURES IN PLACE. WILL CONTINUE TO MONITOR
[2019-12-05] MEDS: ASPIRIN 81 MG TAB.CHEW PO SCH (10:37)
[2019-12-05] MEDS: amLODIPine 5 MG TAB PO SCH (10:37)
--- NOTE | 2019-12-05 11:30 | NUR ---
PT BLOOD SUGAR IS 105. NO INSULIN NEEDED AT THIS TIME. SAFETY MEASURES IN PLACE. WILL CONTINUE TO MONITOR
[2019-12-05 12:00] VITALS: BP 155/61
--- NOTE | 2019-12-05 12:15 | NUR ---
PT TOOK OFF GOWN, TELE MONITOR, AND ATTEMPTED TO PULL OUT IV. TRIED TO REORIENT PATIENT. PT UNABLE TO VERBALIZED UNDERSTANDING. RESIDENT DR. SCHNEIDER MADE AWARE. SAFETY MEASURES IN PLACE. WILL CONTINUE TO MONITOR
--- NOTE | 2019-12-05 14:15 | NUR ---
PT GOT OUT OF BED MULTIPLE TIMES. BED ALARM WAS WORKING PROPERLY. PT GETS OUT OF BED AND SAYS "PEE PEE." WHEN PATIENT SITS ON THE BEDSIDE COMMODE, SHE DOES NOT VOID. RESIDENT JESSICA MADE AWARE. WILL CONTINUE TO MONITOR
--- NOTE | 2019-12-05 14:45 | NUR ---
ADMINISTERED SCHED MED PRESCRIBED PER MD ORDER. PT TOLERATED WELL. MEDICATION EDUCATION PERFORMED. PT VERBALIZED UNDERSTANDING. SAFETY MEASURES IN PLACE. WILL CONTINUE TO MONITOR
[2019-12-05] MEDS ORDERED: OLANZapine 2.5 MG TAB PO SCH (15:00)
--- NOTE | 2019-12-05 15:44 | NUR ---
BED ALARM WENT OFF AGAIN. PT STILL TRYING TO GET OUT OF BED TO USE THE BEDSIDE COMMODE. TRIED TO REORIENT PATIENT. PT UNABLE TO VERBALIZE UNDERSTANDING. SAFETY MEASURES IN PLACE. WILL CONTINUE TO MONITOR
[2019-12-05 16:00] VITALS: BP 132/74
--- NOTE | 2019-12-05 16:30 | NUR ---
PT BLOOD SUGAR IS 169. PRN INSULIN WILL BE ADMINISTERED WITH NEXT MEAL. SAFETY MEASURES IN PLACE. WILL CONTINUE TO MONITOR
[2019-12-05] MEDS: INSULIN LISPRO SLIDING SCALE 100 UNITS/ML VIAL SUBQ PRN (17:16)
--- NOTE | 2019-12-05 17:45 | NUR ---
ADMINISTERED SCHED MED PRESCRIBED PER MD ORDER. PT TOLERATED WELL. MEDICATION EDUCATION PERFORMED. PT VERBALIZED UNDERSTANDING. SAFETY MEASURES IN PLACE. WILL CONTINUE TO MONITOR
--- NOTE | 2019-12-05 18:00 | NUR ---
RECEIVED CALL FROM CHEMISTRY AND PT SECOND COVID SWAB CAME OUT NEGATIVE. CHARGE NURSE AND RESIDENT DR. SCHNEIDER IS AWARE. SAFETY MEASURES IN PLACE. WILL CONTINUE TO MONITOR
--- NOTE | 2019-12-05 19:15 | NUR ---
ENDORSED TO NIGHTSHIFT NURSE FOR CONTINUITY OF CARE. PT IS STABLE
--- NOTE | 2019-12-05 19:16 | NUR ---
RECEIVED PATIENT IN STABLE CONDITION FROM AM SHIFT NURSE FOR CONTINUITY OF CARE. RESPIRATIONS EVEN, UNLABORED. SKIN WARM, DRY. IV SITE NOTED TO LEFT WRIST PATENT/INTACT. NO C/O PAIN. NO S/S ACUTE DISTRESS. SAFETY PRECAUTIONS IN PLACE. CALL LIGHT WITHIN REACH.
--- NOTE | 2019-12-05 19:45 | NUR ---
PATIENT ATTEMPTED TO USE THE COMMODE BUT HAD ALREADY URINATED IN BED. INCONTINENT CARE RENDERED BY STAFF. PATIENT ABLE TO TRANSFER TO BED AND COMMODE WITH ASSIST. PATIENT CURRENTLY CLEAN/DRY IN BED. CALL LIGHT WITHIN REACH. SAFETY PRECAUTIONS IN PLACE.
[2019-12-05] MEDS: SIMVASTATIN 20 MG TAB PO SCH (20:34)
--- NOTE | 2019-12-05 21:00 | NUR ---
PATIENT IS AWAKE AND RESTING COMFORTABLY IN BED. DUE MEDS GIVEN. BLOOD GLUCOSE 150 MG/DL. CALL LIGHT WITHIN REACH. SAFETY PRECAUTIONS IN PLACE.
--- NOTE | 2019-12-05 23:08 | NUR ---
CONTINUES IN STABLE CONDITION. PATIENT IS ASLEEP WITH NO S/S ACUTE DISTRESS. CALL LIGHT IN REACH. SAFETY PRECAUTIONS IN PLACE.
[2019-12-06] VITALS: BP 125/62
--- NOTE | 2019-12-06 01:09 | NUR ---
MADE ROUNDS. PATIENT IS ASLEEP. NO S/S ACUTE DISTRESS. CALL LIGHT WITHIN REACH. WILL CONTINUE TO MONITOR.
--- NOTE | 2019-12-06 03:39 | NUR ---
PATIENT CONTINUES IN STABLE CONDITION. ASLEEP. NO S/S ACUTE DISTRESS. CALL LIGHT WITHIN REACH.
--- NOTE | 2019-12-06 05:53 | NUR ---
INCONTINENT CARE RENDERED. PATIENT IS AWAKE. NO S/S ACUTE DISTRESS. NO C/O PAIN. CALL LIGHT WITHIN REACH. SAFETY PRECAUTIONS IN PLACE.
[2019-12-06 06:11] LABS: BASOPHILS % (AUTO) 0.2 % (0.0-2.0); EOSINOPHILS # (AUTO) 0.2 K/uL (0-0.4); EOSINOPHILS % (AUTO) 4.9 % (0.0-4.0); HEMATOCRIT 28.8 % (36-48); HEMOGLOBIN 9.7 g/dL (12.0-16.0); LYMPHOCYTES # (AUTO) 1.8 K/uL (2.5-16.5); LYMPHOCYTES % (AUTO) 36.7 % (20.5-51.1); MEAN CORPUSCULAR HEMOGLOBIN 34 pg (27-31); MEAN CORPUSCULAR HGB CONC 34 g/dL (33-37); MEAN CORPUSCULAR VOLUME 101.1 fL (80-94); MONOCYTES # (AUTO) 0.4 K/uL (0.8-1.0); MONOCYTES % (AUTO) 7.1 % (1.7-9.3); NEUTROPHILS # (AUTO) 2.6 K/uL (1.8-7.7); NEUTROPHILS % (AUTO) 51.1 % (42.2-75.2); PLATELET COUNT (AUTO) 190 K/uL (140-450); RED BLOOD CELL COUNT(AUTO) 2.85 MIL/uL (4.20-5.40); RED CELL DISTRIBUTION WIDTH 13.3 % (11.6-13.7)
[2019-12-06] MEDS: BLOOD GLUCOSE MONITORING 1 DEV DEV FS SCH ×2 (06:30→12:17)
--- NOTE | 2019-12-06 07:01 | NUR ---
WILL ENDORSE TO NEXT SHIFT FOR CONTINUITY OF CARE. PATIENT IS IN STABLE CONDITION.
[2019-12-06 07:11] LABS: ANION GAP 11.6 (8-16); CARBON DIOXIDE 27.1 mmol/L (21-32); CHLORIDE 111 mmol/L (98-107); CREATININE 1.6 mg/dL (0.6-1.3); GLUCOSE 108 mg/dL (74-106); POTASSIUM 3.7 mmol/L (3.5-5.1); SODIUM SERUM 146 mmol/L (136-145); UREA NITROGEN, BLOOD 27 mg/dL (7-18)
[2019-12-06 07:13] LABS: MAGNESIUM 2.2 mg/dL (1.8-2.4); PHOSPHORUS 3.5 mg/dL (2.5-4.9)
--- NOTE | 2019-12-06 07:35 | NUR ---
RECEIVED PATIENT FROM SILK CREPE MACHINE OPERATOR RN FOR CONTINUITY OF CARE. PT IS AAOX2-3. DIFFICULT TO ASSESS B/C PT IS [place] SPEAKING. RESPIRATIONS EVEN, UNLABORED. SKIN WARM AND DRY AND INTACT. IV SITE NOTED TO LEFT WRIST PATENT AND INTACT AND SL. NO C/O PAIN. NO S/S OF ACUTE DISTRESS. SAFETY PRECAUTIONS IN PLACE. CALL LIGHT WITHIN REACH. WILL ROUND FREQUENTLY THROUGHOUT THE SHIFT.
[2019-12-06 08:00] VITALS: BP 127/54
[2019-12-06] MEDS: amLODIPine 5 MG TAB PO SCH (09:00)
[2019-12-06] MEDS: LOSARTAN 50 MG TAB PO SCH (09:00)
--- NOTE | 2019-12-06 09:15 | NUR ---
ADMINISTERED MORNING MEDS TO PT. PT TOLERATED WELL. ALL NEEDS MET. WILL ROUND FREQUENTLY ON PT.
[2019-12-06] MEDS: hydrALAZINE 25 MG TAB PO SCH (09:21)
[2019-12-06] MEDS: risperiDONE 1 MG TAB PO SCH (09:21)
[2019-12-06] MEDS: SENNA 8.6 MG TAB PO SCH (09:21)
[2019-12-06] MEDS: ASPIRIN 81 MG TAB.CHEW PO SCH (09:21)
[2019-12-06] MEDS: AZITHROMYCIN 250 MG TAB PO SCH (09:21)
[2019-12-06] MEDS ORDERED: CRUSHER, PILL MC ONE (09:29)
[2019-12-06] MEDS ORDERED: HYDR-4420 PO (10:40)
[2019-12-06] MEDS ORDERED: RIS1 PO (10:40)
[2019-12-06] MEDS ORDERED: CEFT1PDS IJ (10:40)
[2019-12-06] MEDS ORDERED: AZIT250T11 PO (10:40)
--- NOTE | 2019-12-06 11:37 | NUR ---
PT RESTING IN BED. ALL NEEDS MET. WILL CONTINUE TO ROUND FREQUENTLY ON PT.
--- NOTE | 2019-12-06 13:50 | NUR ---
CALLED [facility] AND GAVE REPORT TO NAYELI PRUITT.
--- NOTE | 2019-12-06 15:20 | NUR ---
DC PT IN STABLE CONDITION. ALL BELONGINGS SENT WITH TRANSPORT TEAM. PT DC PAPERWORK SENT WITH TEAM. REPORT GIVEN TO [facility]. IV LEFT IN PLACE FOR CONTINUATION OF IV THERAPY.
== END 2019-12-06 15:20 | DRG 193 ==
LOC: EEVIPCON 08:09 → MED 08:09 → MTU 10:01
PROVIDERS: ADMIT General Practice; ATTEND General Practice
DX: J18.9 Pneumonia, unspecified organism (principal); G93.41 Metabolic encephalopathy; N17.0 Acute kidney failure with tubular necrosis; E87.0 Hyperosmolality and hypernatremia; F03.91 Unspecified dementia, unspecified severity, with behavioral disturbance; I12.9 Hypertensive chronic kidney disease with stage 1 through stage 4 chronic kidney disease, or unspecified chronic kidney disease; E11.22 Type 2 diabetes mellitus with diabetic chronic kidney disease; N18.9 Chronic kidney disease, unspecified; N32.81 Overactive bladder; H70.91 Unspecified mastoiditis, right ear; R26.9 Unspecified abnormalities of gait and mobility; R29.6 Repeated falls; E78.5 Hyperlipidemia, unspecified; R26.0 Ataxic gait; M62.81 Muscle weakness (generalized); E87.8 Other disorders of electrolyte and fluid balance, not elsewhere classified; D72.819 Decreased white blood cell count, unspecified; D64.9 Anemia, unspecified; D75.89 Other specified diseases of blood and blood-forming organs; Z03.818 Encounter for observation for suspected exposure to other biological agents ruled out; Z79.899 Other long term (current) drug therapy
CPT/HCPCS: 36415; 36600; 70450; 71045; 80048; 80053; 81003; 82140; 82607; 82746; 82803; 82948; 83036; 83605; 83615; 83735; 83880; 84100; 84439; 84443; 84484; 85025; 85379; 85610; 85651; 85730; 86140; 86886; 86900; 86901; 87040; 87081; 87086; 92610; 93005; 96361; 96365; 97110; 97112; 97116; 97530; 99285; J0456; J0696; J1644; J1815; J2001; J7060; Q0092; U0003-CS

== ENCOUNTER 2019-12-23 22:10 | Emergency (ER) | payer OTHER, MEDICAID, SELFPAY ==
[~2019-12-23] VITALS: Ht 152.4 cm; Wt 55.8 kg
[~2019-12-23 22:10] MED LIST changes: +AZIT250T11 PO; +CEFT1PDS IJ; +HYDR-4420 PO; -HYDR100T79 PO; +RIS1 PO
--- NOTE | 2019-12-23 22:20 | NUR ---
PT [place] WITH [place] , [facility] [facility] [place] DUE TO UNWITNESSED FALL AND CONTUSION TO LEFT FOREHEAD
[2019-12-23 22:26] VITALS: BP 170/68
--- NOTE | 2019-12-23 22:26 | NUR ---
PT ARRIVED FROM SNF ([facility]) FOR S/P UNWITNESSED FALL X 10 MINS AGO, UNSURE OF DOWNTIME, MAYBE 5 MINS PER EMS PER [facility]; CONTUSION TO LEFT FOREHEAD THAT IS SENSITIVE TO TOUCH WITH EDEMA AND BRUISING. NO N,V,OR FEVER. 3MM PERRLA BRISK. A&O X1 PER PT BASELINE. PMH: CHRONIC KIDNEY DISEASE/DEMENTIA/HTN/HEMIPLEGIA//HEMIPARESIS/CEREBRAL INFARCT/ANEMIA/HYPERLIPIDEMIA/ATAXI GAIT/WEAKNESS/DM/CATARACTS/URINARY INCONTINENCE/FALLS/PNA/PSYCHOSIS. NKA.
--- NOTE | 2019-12-23 22:26 | NUR ---
PT TRANSFERRED FROM EMS [facility] TO BED 12
--- NOTE | 2019-12-23 22:46 | NUR ---
Bob rg in [facility] - 12/23/19 at 2247 by ROXI pt taken to ct via [facility]
--- NOTE | 2019-12-23 22:46 | NUR ---
PT TRANSFER TO CT VIA [facility].
--- NOTE | 2019-12-23 23:00 | NUR ---
PT RETURNED BACK FROM CT.
[2019-12-23] MEDS ORDERED: ACETAMINOPHEN EXTRA STRENGTH 500 MG TAB PO ONE (23:35)
--- NOTE | 2019-12-24 00:44 | NUR ---
CALLED [facility] AND SPOKE TO NAYELI DE LA TORRE TO GIVE REPORT ABOUT PT. PT MODE OF TRANSPORATION WILL BE HERE IN 15-30MINS. ALL QUESTIONS AND CONCERNS ANSWERED.
[2019-12-24 01:19] VITALS: BP 159/61
--- NOTE | 2019-12-24 01:19 | NUR ---
Patient discharged with v/s stable. Written and verbal after care instructions given and explained. Patient verbalized understanding. Ambulance Transport with to home. All questions addressed prior to discharge. Advised to follow up with PMD.
== END 2019-12-24 01:19 ==
LOC: MED 22:10
DX: S00.03XA Contusion of scalp, initial encounter (principal); E11.22 Type 2 diabetes mellitus with diabetic chronic kidney disease; I12.9 Hypertensive chronic kidney disease with stage 1 through stage 4 chronic kidney disease, or unspecified chronic kidney disease; N18.9 Chronic kidney disease, unspecified; F03.90 Unspecified dementia, unspecified severity, without behavioral disturbance, psychotic disturbance, mood disturbance, and anxiety; D64.9 Anemia, unspecified; E78.5 Hyperlipidemia, unspecified; Z98.890 Other specified postprocedural states; Z79.82 Long term (current) use of aspirin; Z79.899 Other long term (current) drug therapy; W19.XXXA Unspecified fall, initial encounter; Y93.89 Activity, other specified; Y92.89 Other specified places as the place of occurrence of the external cause; Y99.8 Other external cause status
CPT/HCPCS: 70450; 99284

== ENCOUNTER 2020-01-26 18:57 | Emergency (ER) | payer OTHER, MEDICAID, SELFPAY ==
[~2020-01-26] VITALS: Ht 172.7 cm; Wt 52.2 kg
[2020-01-26 18:57] VITALS: BP 127/98
[~2020-01-26 18:57] MED LIST changes: -AZIT250T11 PO; +PIPE1PDS26 IV
--- NOTE | 2020-01-26 18:57 | NUR ---
PT BIBA [facility]. PT TAKEN TO BED 10. ER AT BEDSIDE
--- NOTE | 2020-01-26 19:00 | NUR ---
PT DOES NOT COME WITH SIGNED POLST FORM TO DETERMINE CODE STATUS. ONLY DR'S ORDER FORM STATING DNR WITHOUT DR'S SIGNATURE FROM 01/16/2020.
--- NOTE | 2020-01-26 19:08 | NUR ---
SIGNED BY DR. HERNANDEZ, DNR PAPER FOUND IN THE E-CHART OF 01/14/2020. PT IS TREATING DNR.
--- NOTE | 2020-01-26 19:14 | NUR ---
[place] [facility] [place] X 30 MIN, DIFFICULTY BREATHING, AND HYPOTENSION - 52/35. PT ARRIVED ON SCENE WITH EMS PROVIDING BREATHS VIA [facility]BU BAG. EMT AND RT AT BEDSIDE WITH DR. JONES. PRIMARY NURSE FAN RN AT BEDSIDE. PT ARRIVED WITH IV PLACED IN R WRIST 18G. PT COVID POSITIVE X 1 WEEK. ACCUCHECK READ AT: 230. MEDHX: DM TYPE II, DEMENTIA ALLERGIES: NKA Addendum: 01/26/20 at 2207 by [email or web address] *PT IS COVID NEGATIVE.
--- NOTE | 2020-01-26 19:15 | NUR ---
RECIVED REPORT FROM FAN GOMEZ AT BEDSIDE.
--- NOTE | 2020-01-26 19:16 | NUR ---
JASON CALLED TIME OF 1915.
[2020-01-26] MEDS ORDERED: ETOMIDATE 20 MG/10 ML VIAL IVP ONE (19:30)
[2020-01-26] MEDS ORDERED: ROCURONIUM 50 MG/5 ML VIAL IV ONE (19:30)
--- NOTE | 2020-01-26 19:34 | NUR ---
CALLED [facility] AND SPOKE WITH KATY. SHE STATED TO WAIT FROM A CALL FROM [facility].
--- NOTE | 2020-01-26 19:38 | NUR ---
SPOKE WITH MATTHEW FROM [facility] - [phone]. SHE STATED PT DOES NOT MEET CRITERIA FOR DONATION. REFERAL ID # [id number].
--- NOTE | 2020-01-26 19:38 | NUR ---
Note ifrah in EDM - [facility] WITH [facility]W FROM [facility] - [phone]. SHE STATED PT DOES NOT MEET CRITERIA FOR DONATION. REFERAL ID # [id number].
--- NOTE | 2020-01-26 20:38 | NUR ---
SPOKE WITH ARON ATKINSON FROM [facility] AND SHE STATED PT WILL NOT BE A [facility]'S CASE. REFERENCE # [id number].
--- NOTE | 2020-01-26 20:45 | NUR ---
POST MORTEM CARE PROVIDED.
--- NOTE | 2020-01-26 21:31 | NUR ---
PT FAMILY AT BEDSIDE WITH DR. JONES
--- NOTE | 2020-01-26 22:00 | NUR ---
SPOKE WITH PT SON NATALIYA ELDRIDGE AND HE PROVIDED MORTUARY INFORMATION. PERMISSION GIVEN TO CALL HIM @ [phone] OR GRANDSON, NICOL ELDRIDGE @ [phone] IF UNABLE TO REACH SON.
--- NOTE | 2020-01-26 22:30 | NUR ---
[facility] @ [phone]. SPOKE WITH WIL AND SHE STATES ETA: 1-1.5 HOURS FOR OFFICE TECHNOLOGY INSTRUCTOR.
--- NOTE | 2020-01-27 00:09 | NUR ---
MORTUARY TRANSPORT AT BEDSIDE
--- NOTE | 2020-01-27 00:19 | NUR ---
Pt taken from facility and was transferred to [facility] in [place]. Pt had no belongings upon arrival to ED.
--- NOTE | 2020-01-27 00:35 | NUR ---
CALLED SON NATALIYA ELDRIDGE TO INFORM HIM THAT PT WAS PICKED UP BY [facility].
== END 2020-01-26 19:16 | disposition expired ==
LOC: MED 18:57
DX: R06.03 Acute respiratory distress (principal); E11.9 Type 2 diabetes mellitus without complications; I10 Essential (primary) hypertension; I63.9 Cerebral infarction, unspecified; N28.9 Disorder of kidney and ureter, unspecified; Z98.49 Cataract extraction status, unspecified eye; Z79.899 Other long term (current) drug therapy
CPT/HCPCS: 96374; 96375; 99285; J3490